=== PATIENT | female | born 1990 | race Caucasian/White ===

== ENCOUNTER → 2025-07-31 15:20 | Outpatient (CLI) | payer OTHER, SELFPAY ==
--- NOTE | 2025-07-31 15:25 | DI.US.S_ITS ---
PROCEDURE: US OB <= 14 WEEKS FETUS INDICATIONS: Dating and viability OUTSIDE/PRIOR DATING DATA: Last menstrual period (LMP): 05/02/2025. LMP-based estimated date of delivery (DOTTIE): 02/06/2026. First dating scan (date and location): Today Estimated date of delivery (DOTTIE) from first dating scan: 02/02/2026. TECHNIQUE: Real-time scanning was performed of the fetus and maternal pelvic organs, with image documentation. COMPARISON: None. FINDINGS: Intrauterine gestation is seen with crown-rump length of 7.3 cm. Ultrasound age is 13 weeks and 3 days. Probable left corpus luteum cyst. Cardiac motion is seen rate of 144 BPM IMPRESSION: Intrauterine gestation with cardiac motion at an ultrasound age of 13 weeks and 3 days. This is consistent with the reported LMP. Dictated by: Fer Prasad M.D. on 07/31/2025 at 16:57 Approved by: Fer Prasad M.D. on 07/31/2025 at 16:58
== END ==
LOC: US 15:21
PROVIDERS: PCP Family Medicine; Referring Provider Family Medicine; Visit Provider Family Medicine
DX: Z34.80 Encounter for supervision of other normal pregnancy, unspecified trimester (principal); Z3A.13 13 weeks gestation of pregnancy
CPT/HCPCS: 76801; 76817

== ENCOUNTER → 2025-08-16 08:17 | Outpatient (CLI) | payer OTHER, SELFPAY ==
[2025-08-16 16:06] LABS: Urine N gonorrhoeae NOT DETECTED
[2025-08-16 16:29] LABS: Urine Chlamydia NOT DETECTED
== END ==
LOC: LAB 08:25
PROVIDERS: Visit Provider Obstetrics & Gynecology
DX: Z11.3 Encounter for screening for infections with a predominantly sexual mode of transmission (principal)
CPT/HCPCS: 87491; 87591

== ENCOUNTER → 2025-08-16 08:30 | Outpatient (CLI) | payer OTHER, SELFPAY ==
[2025-08-16 09:39] LABS: Natera Collection Specimen Collected
[2025-08-16 10:16] LABS: Add Manual Diff / Slide Review NO; Hematocrit 38.6 % (36-46); Hemoglobin 13.2 g/dL (12.0-16.0); Lymphocytes Absolute Auto 1300 /uL (1100-4500); Mean Corpuscular HGB Conc 34.1 % (30-36); Mean Corpuscular Hemoglobin 31.8 PG (26-34); Mean Corpuscular Volume 93.3 fL (80-100); Platelet Count 241 X10^3/uL (150-400)
[2025-08-16 11:13] LABS: Hepatitis B Surface Antigen NEGATIVE s/c (NEGATIVE)
[2025-08-16 11:26] LABS: HIV 1 & 2 Ab/Ag 4th Gen Combo NEGATIVE (NEGATIVE); Hep C Virus Ab w/Reflex Quant NEGATIVE s/c (NEGATIVE)
== END ==
PROVIDERS: Referring Provider Obstetrics & Gynecology; Visit Provider Obstetrics & Gynecology
DX: O09.512 Supervision of elderly primigravida, second trimester (principal); Z36.0 Encounter for antenatal screening for chromosomal anomalies; Z11.3 Encounter for screening for infections with a predominantly sexual mode of transmission
CPT/HCPCS: 36415; 80055; 86787; 86803; 86850; 86900; 86901; 87389; 87491; 87591

== ENCOUNTER → 2025-09-13 09:20 | Outpatient (CLI) | payer OTHER, SELFPAY | PROVIDERS: Referring Provider Obstetrics & Gynecology; Visit Provider Obstetrics & Gynecology | DX: Z36.0 Encounter for antenatal screening for chromosomal anomalies (principal) | CPT/HCPCS: 36415; 82105 ==

== ENCOUNTER → 2025-10-01 07:59 | Outpatient (CLI) | payer OTHER, SELFPAY ==
--- NOTE | 2025-10-01 08:01 | DI.US.S_ITS ---
PROCEDURE: US OB >= 14 WEEKS FETUS INDICATIONS: 20 week anatomy scan OUTSIDE/PRIOR DATING DATA: Last menstrual period (LMP): 05/02/25 LMP-based estimated date of delivery (DOTTIE): 02/06/26. First dating scan (date and location): 07/31/25. Estimated date of delivery (DOTTIE) from first dating scan: 02/02/26. The calculations are made using the working DOTTIE of 02/06/26. TECHNIQUE: Real-time scanning was performed of the fetus, with image documentation and biometric measurements. Endovaginal scanning: No COMPARISON: None. FINDINGS: General: A single living intrauterine gestation is present. Presentation: Breech. Placenta: Placental position is anterior , without previa. Amniotic fluid index: 15.2 cm, normal range is 5-24 cm. Single deepest vertical pocket is 6.1 cm. heart rate: 137 beats per minute. Maternal cervical canal: Closed and 3.8 cm long. Normal lower limit is 2.5 cm. biometrics: Biparietal diameter: 5.3 cm 22 weeks one day Head circumference: 19.9 cm 22 weeks 0 days Abdominal circumference: 18.6 cm 23 weeks three days Femur length: 3.8 cm 22 weeks one day Clinically estimated gestational age: 21 weeks five days Composite gestational age from present scan: 22 weeks three days Estimated weight and percentile: 532 g 91st percentile Anatomic survey: Neuro: Ventricles are non-dilated at less than 10 mm. Cisterna magna is normal at 3-11 mm. Cerebellum is normal in size and morphology. Nuchal skin fold: Normal at less than 6 mm between 14-21 weeks gestational age. Face: Nose and lips, facial profile are normal. Spine: No evidence for spina bifida. Heart: 4-chambered heart is present, with normal ventricular outflow tracts. Diaphragm: Diaphragm is intact. Stomach: Left-sided stomach is present. Kidneys: No hydronephrosis. Normal is less than 5 mm in 2nd trimester, less than 7 mm in 3rd trimester. Cord: 3-vessel cord has orthotopic insertion. Bladder: Normal in size. Extremities: All 4 extremities identified. IMPRESSION: A single live intrauterine with estimated weight at the 91st percentile. Recommend follow-up. Symmetric growth and normal anatomy. Composite gestational age five days ahead of the expected. Closed cervix and normal amniotic fluid volume. We strive to produce accurate, complete, and clear reports of imaging services. To assist us in improving patient care, this report was composed using standard report templates and voice recognition software. Therefore, it may contain abnormal punctuation, insertions and/or omissions. Occasional wrong-word or sound-alike substitutions may occur. Though we review the report and make efforts to correct it, we do recommend that the report be read carefully in proper context to recognize any text inaccuracies. Dictated by: Latrice Mehta M.D. on 10/01/2025 at 17:23 Approved by: Latrice Mehta M.D. on 10/01/2025 at 17:27
== END ==
LOC: US 08:00
PROVIDERS: Referring Provider Obstetrics & Gynecology; Visit Provider Obstetrics & Gynecology
DX: Z36.0 Encounter for antenatal screening for chromosomal anomalies (principal); Z3A.22 22 weeks gestation of pregnancy
CPT/HCPCS: 76811